=== PATIENT | female | born 1990 | race African-American/Black ===

== ENCOUNTER 2017-09-26 15:49 | Emergency (ER) | payer SELFPAY ==
[~2017-09-26 15:49] MED LIST: AMOX500T PO; DICL50 PO; OXYC-360 PO; PRENCAP6 OR
[2017-09-26 16:09] VITALS: BP 128/62; PULSE 73; RESP 16; TEMP 98.4; O2SAT 100
[2017-09-26 17:46] LABS: AUTOMATED NEUTROPHIL # 6.5 TH/MM3 (1.8-7.7); BASOPHIL % 0.3 % (0.0-2.0); EOSINOPHIL # 0.3 TH/MM3 (0-0.4); EOSINOPHIL % 2.9 % (0.0-4.0); HEMOGLOBIN 12.4 GM/DL (11.6-15.3); LYMPH % 18.4 % (9.0-44.0); LYMPHOCYTE # 1.7 TH/MM3 (1.0-4.8); MEAN CELL VOLUME 84.5 FL (80.0-100.0); MEAN CORPUSCULAR HGB CONC 34.4 % (32.0-36.0); MEAN PLATELET VOLUME 9.9 FL (7.0-11.0); MONO % 8.4 % (0.0-8.0); MONOCYTE # 0.8 TH/MM3 (0-0.9); PLATELET COUNT 227 TH/MM3 (150-450); RED BLOOD COUNT 4.26 MIL/MM3 (4.00-5.30); RED CELL DISTRIBUTION WIDTH 13.7 % (11.6-17.2); WHITE BLOOD COUNT 9.3 TH/MM3 (4.0-11.0)
[2017-09-26 17:59] LABS: BACTERIA, URINE FEW /hpf; BILIRUBIN, URINE NEG (NEG); BLOOD, URINE NEG (NEG); GLUCOSE,URINE NEG (NEG); KETONE, URINE TRACE mg/dL (NEG); MUCUS URINE MANY /lpf (OCC); NITRITE,URINE NEG (NEG); SQUAMOUS EPITHELIAL CELL URINE 3 /hpf (0-5); URINE COLOR YELLOW (YELLW/STRAW); URINE LEUKOCYTE ESTERASE MOD (NEG)
[2017-09-26 18:05] LABS: ALBUMIN 3.2 GM/DL (3.4-5.0); AST (GOT) 11 U/L (15-37); BICARBONATE 24.6 MEQ/L (21.0-32.0); BLOOD UREA NITROGEN 7 MG/DL (7-18); CALCIUM 8.8 MG/DL (8.5-10.1); CHLORIDE 105 MEQ/L (98-107); GLOMERULAR FILTRATION RATE 144 ML/MIN (>89); GLUCOSE,RANDOM 79 MG/DL (74-106); SODIUM (NA) 136 MEQ/L (136-145)
--- NOTE | 2017-09-26 18:14 | PD ---
HPI Chief Complaint: GI Complaint Time Seen by Provider: 16:09 Travel History International Travel<30 days: No Contact w/Intl Traveler<30days: No Traveled to known affect area: No History of Present Illness HPI 27-year-old female presents to emergency department for evaluation of lower abdominal cramping with associated nausea, vomiting, diarrhea that began last evening. Patient denies any fever or chills. Denies any hematochezia or hematemesis. States that she recently took up positive test. Her last menstrual cycle was in June 2017. She denies any vaginal bleeding or discharge. She has no other symptoms to report. PFSH Past Medical History Diminished Hearing: No ?: Past Surgical History Abdominal Surgery: Yes (C-Sect.) Section: Yes Social History Alcohol Use: No Tobacco Use: No Substance Use: No Allergies-Medications (Allergen,Severity, Reaction): Coded Allergies: No Known Allergies (Verified , 12/16/15) Reported Meds & Prescriptions Reported Meds & Active Scripts Active Voltaren (Diclofenac Sodium) 50 Mg Tabec 50 Mg PO TID Amoxil (Amoxicillin) 500 Mg Cap 500 Mg PO TID Reported Percocet (Oxycodone/Acetaminophen) 5 Mg/325 Mg Tab 1-2 Tab PO Q4HPRN FOR PAIN 1 ( Multivitamins) Cap 1 Tab OR DAILY Review of Systems Except as stated in HPI: all other systems reviewed are Neg Physical Exam Narrative Well-nourished female patient, ambulatory and in no acute distress. Head is atraumatic. Even respirations. Regular heart rate. Patient moves all extremities freely. She speaks clearly. Data Data Last Documented VS Vital Signs Date Time Temp Pulse Resp B/P (MAP) Pulse Ox O2 Delivery O2 Flow Rate FiO2 09/26/17 16:09 98.4 73 16 128/62 (84) 100 Orders Orders Complete Blood Count With Diff (09/26/17 16:11) Urinalysis - C+S If Indicated (09/26/17 16:11) Ed Urine Pregnancytest Poc (09/26/17 16:11) Beta Hcg (Quant/Titer) (09/26/17 16:11) Comprehensive Metabolic Panel (09/26/17 16:11) Lipase (09/26/17 16:11) Urine Culture (09/26/17 16:52) Labs Laboratory Tests Test 09/26/17 16:52 White Blood Count 9.3 TH/MM3 Red Blood Count 4.26 MIL/MM3 Hemoglobin 12.4 GM/DL Hematocrit 36.0 % Mean Corpuscular Volume 84.5 FL Mean Corpuscular Hemoglobin 29.0 PG Mean Corpuscular Hemoglobin Concent 34.4 % Red Cell Distribution Width 13.7 % Platelet Count 227 TH/MM3 Mean Platelet Volume 9.9 FL Neutrophils (%) (Auto) 70.0 % Lymphocytes (%) (Auto) 18.4 % Monocytes (%) (Auto) 8.4 % Eosinophils (%) (Auto) 2.9 % Basophils (%) (Auto) 0.3 % Neutrophils # (Auto) 6.5 TH/MM3 Lymphocytes # (Auto) 1.7 TH/MM3 Monocytes # (Auto) 0.8 TH/MM3 Eosinophils # (Auto) 0.3 TH/MM3 Basophils # (Auto) 0.0 TH/MM3 CBC Comment DIFF FINAL Differential Comment Urine Color YELLOW Urine Turbidity HAZY Urine pH 6.0 Urine Specific [place] 1.043 Urine Protein 30 mg/dL Urine Glucose (UA) NEG mg/dL Urine Ketones TRACE mg/dL Urine Occult Blood NEG Urine Nitrite NEG Urine Bilirubin NEG Urine Urobilinogen LESS THAN 2.0 MG/DL Urine Leukocyte Esterase MOD Urine RBC 2 /hpf Urine WBC 9 /hpf Urine Squamous Epithelial Cells 3 /hpf Urine Bacteria FEW /hpf Urine Mucus MANY /lpf Microscopic Urinalysis Comment CULTURE INDICATED Blood Urea Nitrogen 7 MG/DL Creatinine 0.60 MG/DL Random Glucose 79 MG/DL Total Protein 7.7 GM/DL Albumin 3.2 GM/DL Calcium Level 8.8 MG/DL Alkaline Phosphatase 60 U/L Aspartate Amino Transf (AST/SGOT) 11 U/L Alanine Aminotransferase (ALT/SGPT) 14 U/L Total Bilirubin 0.2 MG/DL Sodium Level 136 MEQ/L Potassium Level 3.6 MEQ/L Chloride Level 105 MEQ/L Carbon Dioxide Level 24.6 MEQ/L Anion Gap 6 MEQ/L Estimat Glomerular Filtration Rate 144 ML/MIN Lipase 74 U/L Human Chorionic Gonadotropin, Quant 58578 MIU/ML MDM Medical Decision Making Medical Screen Exam Complete: Yes Emergency Medical Condition: Yes Medical Record Reviewed: Yes Differential Diagnosis Colitis versus diverticulitis versus gastroenteritis versus UTI versus STD Narrative Course 27-year-old female presents to emergency department for evaluation of lower abdominal cramping with nausea, vomiting, diarrhea. She appears nontoxic. Her vital signs are stable. Workup is initiated in triage. Prior to bed placement , patient chooses to leave.AMA: The risks of leaving against medical advice without further evaluation treatment were discussed with the patient. These risks include cardiac dysfunction, cardiac dysrhythmia, possible heart attack, possible stroke or . The patient indicated understanding of these risks and appeared to have the capacity to make this decision. Diagnosis Primary Impression: Nausea, vomiting and diarrhea Additional Impression: Disposition: 07 AGAINST MEDICAL ADVICE Condition: Stable [place] Sep 26, 2017 18:14
[2017-09-26 18:23] LABS: ALKALINE PHOSPHATASE 60 U/L (45-117); ALT (GPT) 14 U/L (10-53); TOTAL BILIRUBIN ADULT 0.2 MG/DL (0.2-1.0); TOTAL PROTEIN 7.7 GM/DL (6.4-8.2)
== END 2017-09-26 18:05 | disposition left against medical advice (07) ==
LOC: NED 15:49
DX: O26.899 Other specified pregnancy related conditions, unspecified trimester (principal); R11.2 Nausea with vomiting, unspecified; R19.7 Diarrhea, unspecified; Z3A.00 Weeks of gestation of pregnancy not specified
CPT/HCPCS: 80053; 81001; 83690; 84702; 84703; 85025; 87086; 99283

== ENCOUNTER → 2017-12-20 | Outpatient (CLI) | payer OTHER ==
[2017-12-20 12:09] LABS: AUTOMATED NEUTROPHIL # 10.3 TH/MM3 (1.8-7.7); BASOPHIL % 0.2 % (0.0-2.0); EOSINOPHIL # 0.2 TH/MM3 (0-0.4); EOSINOPHIL % 1.5 % (0.0-4.0); HEMATOCRIT 31.7 % (35.0-46.0); HEMOGLOBIN 10.6 GM/DL (11.6-15.3); MEAN CORPUSCULAR HEMOGLOBIN 28.6 PG (27.0-34.0); MEAN CORPUSCULAR HGB CONC 33.3 % (32.0-36.0); MEAN PLATELET VOLUME 9.7 FL (7.0-11.0); MONO % 6.3 % (0.0-8.0); MONOCYTE # 0.8 TH/MM3 (0-0.9); PLATELET COUNT 219 TH/MM3 (150-450); RED BLOOD COUNT 3.69 MIL/MM3 (4.00-5.30); RED CELL DISTRIBUTION WIDTH 14.2 % (11.6-17.2); WHITE BLOOD COUNT 13.3 TH/MM3 (4.0-11.0)
[2017-12-20 12:19] LABS: BACTERIA, URINE OCC /hpf; BILIRUBIN, URINE NEG (NEG); BLOOD, URINE NEG (NEG); GLUCOSE,URINE NEG (NEG); HYALINE CAST, URINE 2 /lpf (RARE); KETONE, URINE NEG (NEG); NITRITE,URINE NEG (NEG); PH, URINE 6.5 (5.0-8.5); SQUAMOUS EPITHELIAL CELL URINE 35 /hpf (0-5); URINE COLOR YELLOW (YELLW/STRAW); URINE LEUKOCYTE ESTERASE TRACE (NEG)
== END ==
LOC: ELAB 07:47
PROVIDERS: ATTEND Advanced Practice Midwife
DX: Z20.820 Contact with and (suspected) exposure to varicella (principal); Z13.29 Encounter for screening for other suspected endocrine disorder; Z13.228 Encounter for screening for other metabolic disorders; Z13.89 Encounter for screening for other disorder; Z11.59 Encounter for screening for other viral diseases; Z33.1 Pregnant state, incidental
CPT/HCPCS: 36415; 81001; 83036; 84443; 85025; 86592; 86762; 86787; 86850; 86900; 86901; 87340; 87389; G0475

== ENCOUNTER 2018-04-12 08:29 | Inpatient (IN) ==
[2018-04-12] MEDS ORDERED: ceFAZolin 2 GM Premix Inj 2 GM/50 ML PIGGYBACK IV.SIG PRN (08:59)
[2018-04-12] MEDS ORDERED: Citric Acid/Sodium Citrate Liq 30 ML UDC PO SCH (09:00)
[2018-04-12 09:22] LABS: Baso % (Auto) 0.3 % (0.0-2.0); Eos # (Auto) 0.1 th/mm3 (0.0-0.4); Hematocrit 32.2 % (35.0-46.0); Hemoglobin 10.7 gm/dL (11.6-15.3); Lymph # (Auto) 1.9 th/mm3 (1.0-4.8); Lymph % (Auto) 16.6 % (9.0-44.0); Mean Corpuscular HGB Conc 33.1 % (32.0-36.0); Mean Corpuscular Hemoglobin 27.5 pg (27.0-34.0); Mean Corpuscular Volume 83.2 fL (80.0-100.0); Mean Platelet Volume 8.1 fL (7.0-11.0); Mono # (Auto) 0.7 th/mm3 (0.0-0.9); Mono % (Auto) 6.2 % (0.0-8.0); Neut # (Auto) 8.9 th/mm3 (1.8-7.7); Neut % (Auto) 75.9 % (16.0-70.0); Platelet Count 236 th/mm3 (150-450); Red Blood Count 3.87 mil/mm3 (4.00-5.30); Red Cell Distribution Width 15.7 % (11.6-17.2); White Blood Count 11.7 th/mm3 (4.0-11.0)
[2018-04-12] MEDS ORDERED: Morphine Sulfate PF Inj 5 MG/10 ML Ampul ONE (09:29)
[2018-04-12 09:31] LABS: Bacteria,Urine Rare /hpf; Bilirubin,Urine Negative (Negative); Clarity,Urine Hazy (Clear); Color,Urine Yellow (Yellw/Straw); Glucose,Urine (UA) Negative (Negative); Leukocyte Esterase,Urine Negative (Negative); Mucus,Urine Few /lpf (Occasional); Nitrite,Urine Negative (Negative); Specific Gravity,Urine 1.016 (1.002-1.035); Squamous Epithelial Cell,Urine 15 /hpf (0-5); Urobilinogen,Urine 4 or Greater mg/dL (Less than 2)
[2018-04-12 09:35] LABS: Amphetamine Screen,Urine Neg (Neg); Barbiturate Screen,Urine Neg (Neg); Cannabinoid Screen,Urine Neg (Neg); Cocaine Screen,Urine Neg (Neg); Opiate Screen,Urine Neg (Neg)
[2018-04-12] MEDS ORDERED: ceFAZolin 2 GM/NS 100 ML IV; Q8H IV.SIG SCH ×2 (10:00)
--- NOTE | 2018-04-12 10:06 | P.HPOB ---
History of Present Illness Primary Care Physician: No Primary Care Physician History of Present Illness: HPI: 27 year-old with VALENTE of 04/16/18, therefore at 39 weeks + 3 days EGA, confirmed with LMP on 07/10/17 week ultrasound. Admitted to Labor floor for repeat c/section with tubal ligation. She confirms irregular contractions. Denies any gush of clear fluid. Denies any vaginal bleeding. Patient has felt movements. She is GBS Negative. care: Patient said at her recent visit that she had a low Hb of 8.4. Denies any UTIs. Denies a diagnosis of Gestational diabetes and preeclampsia. OB Hx: G1: Full Term C/Section due to failure to progress (2011) [employer] ATTENDANT Hx: No abnormal Paps. PMH: No History of Asthma, HTN, Blood disorders. FHx: Denies any defects, CF, twins, DM Allergies: NKDA Meds: vitamins. Iron. Social history: No tobacco, alcohol or drug abuse. FH: None ROS: Denies any CP, SOB, AB Pain, Nausea, Vomiting, Problems with Urination or Defecation. - Inpatient Certification I certify that the inpatient services were ordered in accordance with Medicare regulations governing the order. This includes certification that hospital inpatient services are reasonable and necessary and in the case of services not specified as inpatient-only under 42 CFR 419.22(n), that they are appropriately provided as inpatient services in accordance to with the 2-midnight benchmark under 43 CFR 412.3(e) Estimated Total Length of Stay (Days): 3 Plans for Post Hospital Care: Home Review of Systems All other systems reviewed negative except as stated in HPI PMFSH - Travel History Recent Travel in the [place] Within the Last 8 Weeks: No Recent Travel Out of the Country Within the Last 8 Weeks: No Medications and Allergies Active Medications: Active Medications Citric Acid/Sodium Citrate (Sodium Citrate/Citric Acid Liq) 30 ml PO DESSERT [employer] [facility] Stop: 04/16/18 08:59 Lactated Ringer's (Lr 1000 Ml Inj) 1,000 mls @ 150 mls/hr IV.CONT .Q6H40M [facility] Last Admin: 04/12/18 09:40 Dose: 150 mls/hr Cefazolin Sodium 2,000 mg/ (Sodium Chloride) 100 mls @ 200 mls/hr IV.SIG DESSERT [employer] [facility] Stop: 04/15/18 09:59 Sodium Chloride (Ns Flush) 2 ml IV.FLUSH BID PAMELA Sodium Chloride (Ns Flush) 2 ml IV.FLUSH PRN PRN PRN Reason: FLUSH AFTER USING IV ACCESS Allergies Allergy/AdvReac Type Severity Reaction Status Date / Time No Known Allergies Allergy Verified 04/12/18 08:54 Home Medications Medication Instructions Recorded Confirmed Type ferrous sulfate [Iron (ferrous 325 mg PO DAILY 04/12/18 04/12/18 History sulfate)] vit-iron fum-folic ac 1 tab PO DAILY 04/12/18 04/12/18 History [ Vitamin] Exam Vital signs: Vital Signs 04/12/18 08:51 Temperature 99.0 F Pulse Rate 76 Respiratory Rate 18 Blood Pressure 129/65 Intake & Output 04/11/18 04/12/18 04/12/18 18:59 06:59 18:59 Weight 93 kg Other: Weight On Admission 93 kg Narrative: GENERAL: Well-nourished, well-developed patient. SKIN: Warm and dry. HEAD: Normocephalic and atraumatic. CARDIOVASCULAR: Grade 2 systolic murmur appreciated over the left sternal border. RESPIRATORY: Breath sounds equal bilaterally. No accessory muscle use. ABDOMEN/GI: Abdomen soft, non-tender, bowel sounds present, no rebound, no guarding Gravid to 39 weeks size FHT's: Category: 1 Baseline: 150 bmp Reactive: yes Variability: moderate Decels: none EXTREMITIES: No cyanosis or edema. NEUROLOGICAL: Awake and alert. Normal speech. Results - Labs CBC & Chem 7: 04/12/18 08:50 Labs: Laboratory Results - last 24 hr 04/12/18 04/12/18 04/12/18 08:30 08:30 08:50 WBC 11.7 H RBC 3.87 L Hgb 10.7 L Hct 32.2 L MCV 83.2 MCH 27.5 MCHC 33.1 RDW 15.7 Plt Count 236 MPV 8.1 Neut % (Auto) 75.9 H Lymph % (Auto) 16.6 Jackson % (Auto) 6.2 Eos % (Auto) 1.0 Baso % (Auto) 0.3 Neut # (Auto) 8.9 H Lymph # (Auto) 1.9 Jackson # (Auto) 0.7 Eos # (Auto) 0.1 Baso # (Auto) 0.0 WBC Differential . Differential Comment Auto diff final Urine Color Yellow Urine Clarity Hazy H Urine pH 6.0 Ur Specific [place] 1.016 Urine Protein Negative Urine Glucose (UA) Negative Urine Ketones Negative Urine Occult Blood Small H Urine Nitrate Negative Urine Bilirubin Negative Urine Urobilinogen 4 or greater Ur Leukocyte Esterase Negative Urine RBC 31 H Urine WBC 3 Ur Squamous Epith Cells 15 Urine Bacteria Rare H Urine Mucus Few H Micro UA Comment Culture not ind Ur Microscopic Review Microscopic reviewed Urine Culture Comments Culture not ind Urine Opiates Screen Neg Ur Barbiturates Screen Neg Ur Amphetamines Screen Neg U Benzodiazepines Scrn Neg Urine Cocaine Screen Neg U Cannabinoids Screen Neg Blood Type 04/12/18 08:50 WBC RBC Hgb Hct MCV MCH MCHC RDW Plt Count MPV Neut % (Auto) Lymph % (Auto) Jackson % (Auto) Eos % (Auto) Baso % (Auto) Neut # (Auto) Lymph # (Auto) Jackson # (Auto) Eos # (Auto) Baso # (Auto) WBC Differential Differential Comment Urine Color Urine Clarity Urine pH Ur Specific [place] Urine Protein Urine Glucose (UA) Urine Ketones Urine Occult Blood Urine Nitrate Urine Bilirubin Urine Urobilinogen Ur Leukocyte Esterase Urine RBC Urine WBC Ur Squamous Epith Cells Urine Bacteria Urine Mucus Micro UA Comment Ur Microscopic Review Urine Culture Comments Urine Opiates Screen Ur Barbiturates Screen Ur Amphetamines Screen U Benzodiazepines Scrn Urine Cocaine Screen U Cannabinoids Screen Blood Type B Positive Caprini VTE Risk Assessment Caprini VTE Risk Assessment: No/Low Risk (score <= 1) Caprini Risk Assessment Model: Point Value = 1 Point Value = 2 Point Value = 3 Point Value = 5 Age 41-60 Minor surgery BMI > 25 kg/m2 Swollen legs Varicose veins or History of unexplained or recurrent spontaneous Oral contraceptives or hormone replacement Sepsis (< 1 month) Serious lung disease, including pneumonia (< 1 month) Abnormal pulmonary function Acute myocardial infarction Congestive heart failure (< 1 month) History of inflammatory bowel disease Medical patient at bed rest Age 61-74 Arthroscopic surgery Major open surgery (> 45 min) Laparoscopic surgery (> 45 min) Malignancy Confined to bed (> 72 hours) Immobilizing plaster cast Central venous access Age >= 75 History of VTE Family history of VTE Factor V Leiden Prothrombin [id number] Lupus anticoagulant Anticardiolipin antibodies Elevated serum homocysteine Heparin-induced thrombocytopenia Other congenital or acquired thrombophilia Stroke (< 1 month) Elective arthroplasty Hip, pelvis, or leg fracture Acute spinal cord injury (< 1 month) Prophylaxis Regimen: Total Risk Factor Score Risk Level Prophylaxis Regimen 0-1 Low Early ambulation 2 Moderate Order ONE of the following: *Sequential Compression Device (SCD) *Heparin 5000 units SQ BID 3-4 Higher Order ONE of the following medications: *Heparin 5000 units SQ TID *Enoxaparin/Lovenox 40 mg SQ daily (WT < 150 kg, CrCl > 30 mL/min) *Enoxaparin/Lovenox 30 mg SQ daily (WT < 150 kg, CrCl > 10-29 mL/min) *Enoxaparin/Lovenox 30 mg SQ BID (WT < 150 kg, CrCl > 30 mL/min) AND/OR *Sequential Compression Device (SCD) 5 or more Highest Order ONE of the following medications: *Heparin 5000 units SQ TID (Preferred with Epidurals) *Enoxaparin/Lovenox 40 mg SQ daily (WT < 150 kg, CrCl > 30 mL/min) *Enoxaparin/Lovenox 30 mg SQ daily (WT < 150 kg, CrCl > 10-29 mL/min) *Enoxaparin/Lovenox 30 mg SQ BID (WT < 150 kg, CrCl > 30 mL/min) AND *Sequential Compression Device (SCD) Assessment and Plan - Diagnosis (1) 39 weeks gestation of Code(s): Z3A.39 - 39 weeks gestation of Status: Acute (2) deliv due to previous difficult deliv, deliv, curr hospitaliz Code(s): O99.89 - Other specified diseases and conditions complicating , childbirth and the puerperium; Z87.59 - Personal history of other complications of , childbirth and the puerperium Status: Acute - Plan 28 year old at 39+3 presents to Labor floor for repeat c/section with tubal ligation. -Routine care -EFM/Mccaus[place] -Tubal papers signed. -NPO -Cefazolin 2 grams ordered. -CBC, T&S, UA : Hb: 10.7 -Discussed with Dr. Kang
[2018-04-12] MEDS ORDERED: Phenylephrine/NS 1000 MCG/10ML Syringe IV.PUSH ONE (10:10)
[2018-04-12] MEDS ORDERED: Ketorolac Inj 30 MG/ML (IVP) Vial IV.PUSH ONE (11:10)
[2018-04-12] MEDS ORDERED: Acetaminophen 325 MG Tablet PO PRN (11:34)
[2018-04-12] MEDS ORDERED: Senna/Docusate Sodium 8.6/50 MG Tablet PO PRN (11:34)
[2018-04-12] MEDS ORDERED: Simethicone 80 MG Chew Tablet PO PRN (11:34)
--- NOTE | 2018-04-12 11:45 | P.OBDELI ---
Procedure Note - Pre Op Diagnosis (1) Previous delivery affecting , antepartum (2) 39 weeks gestation of - Post Op Diagnosis (1) 39 weeks gestation of (2) Previous delivery affecting , antepartum Performed by: Toño Kang MD Procedure: Repeat Low Transverse Section, Other (bilateral tubal ligation) Indication for Delivery: Desired elective repeat Informed Consent Obtained: For anesthesia, For procedure Confirmed Correct: Patient Anesthesia: Spinal Medication Prior to Procedure: As documented in eMAR Monitoring During Procedure: monitor Urinary Catheter: Inserted using sterile technique Sterile Preparation: Duraprep Position: Supine with wedge to right side - Operative Features Skin Incision: Transverse Uterine Incision: Low transverse w/knife / blunt ext Membranes Ruptured: Artificially Presentation: Occiput anterior Status of Infant: Viable Placenta Delivered: Intact Medications: Antibiotics, Oxytocin Estimated blood loss (mL): 500 Procedure Tolerated: Well Maternal Condition: Stable Baby Condition: Stable Procedure in Detail: Patient was rendered a spinal anesthetic and prepped and draped appropriately. Previous Pfannenstiel incision was excised out of cast off. Incision carried the fascia sharply and the fascia dissected off the rectus muscle laterally. The peritoneal cavity entered sharply without difficulty. Incision extended superior and inferiorly. The incision and stretched open and the bladder blade placed large incision. Bladder was behind the bladder blade. A transverse incision made in the lower uterine segment extended bluntly bilaterally. The male infant was delivered at 10:42 AM Apgars 8/9 and weight was 3765 gm, delayed cord clamping was done, cord blood obtained, placenta manually extracted without difficulty. The uterus cleaned of all remnants of membranes. The uterus is exteriorized elevated out the hysterotomy closed in a running layer of 0 chromic followed by imbricating suture same and hemostasis was achieved. The tubal was then performed the left fallopian tube was grasped with a [place] clamp and elevated. Hemostat passed through an avascular section of the mesosalpinx and 2 plain catgut sutures brought through that window the tube was tied fore and aft the intervening segment excised out sent to pathology. That procedure is known as a [place] tubal ligation. The right tube was elevated and followed to its fimbriated end. An avascular section was identified as well the tube was elevated and a Olive tubal was performed on the side where 2 catgut sutures were used to tie in a lasso fashion around the fallopian tube with a large knuckle of tube above the knot, that knuckle of tube above the knot was excised and sent to pathology. Hemostasis achieved on both sides. And the tubal was completed at that point. The uterus is elevated again and the blood suctioned the cul-de-sac gutters. The uterus replaced the peritoneal cavity. The parietal peritoneum was closed in running layer of 2-0 Vicryl. Muscle reapproximated with stick ties of chromic and Vicryl. The fascia then closed in running layer of 0 Vicryl. Subcutaneous tissues reapproximated the space closed with a 0 plain catgut suture. Skin then closed with 3-0 Monocryl subcuticular stitch and pressure dressing applied. Estimated blood loss 500 cc were no complications sponge and needle correct 2 patient taken recovery - : Male Male A Infant Delivery Date: 04/12/18 Delivery Time: 10:42 Weight: 3.765 kg Delivery of : Uneventful score (1 min): 8 score (5 min): 9
[2018-04-12] MEDS ORDERED: Oxytocin 30 Units/500ml Premix 30 UNITS/500 ML BAG ONE (11:57)
[2018-04-12] MEDS ORDERED: Oxytocin 30 Units/500ml Premix 30 UNITS/500 ML BAG IV.SIG ONE (12:00)
[2018-04-12] MEDS ORDERED: Oxytocin 30 Units/500ml Premix 30 UNITS/500 ML BAG IV.SIG PRN (16:34)
[2018-04-12] MEDS: ceFAZolin 2 GM Premix Inj 2 GM/100 ML BAG IV.SIG SCH (18:07)
[2018-04-12] MEDS ORDERED: Zolpidem Tartrate 5 MG Tablet PO PRN (21:00)
[2018-04-13] MEDS: ceFAZolin 2 GM Premix Inj 2 GM/100 ML BAG IV.SIG SCH (04:30)
[2018-04-13 05:52] LABS: Baso % (Auto) 0.1 % (0.0-2.0); Eos # (Auto) 0.1 th/mm3 (0.0-0.4); Eos % (Auto) 0.5 % (0.0-4.0); Hematocrit 28.1 % (35.0-46.0); Hemoglobin 9.1 gm/dL (11.6-15.3); Lymph # (Auto) 2.2 th/mm3 (1.0-4.8); Lymph % (Auto) 11.6 % (9.0-44.0); Mean Corpuscular HGB Conc 32.4 % (32.0-36.0); Mean Corpuscular Hemoglobin 27.3 pg (27.0-34.0); Mean Corpuscular Volume 84.2 fL (80.0-100.0); Mean Platelet Volume 8.1 fL (7.0-11.0); Mono # (Auto) 1.1 th/mm3 (0.0-0.9); Mono % (Auto) 5.6 % (0.0-8.0); Neut # (Auto) 15.8 th/mm3 (1.8-7.7); Neut % (Auto) 82.2 % (16.0-70.0); Platelet Count 244 th/mm3 (150-450); Red Blood Count 3.33 mil/mm3 (4.00-5.30); White Blood Count 19.2 th/mm3 (4.0-11.0)
--- NOTE | 2018-04-13 09:07 | P.PNOB ---
Subjective Interval history: Patient is a 27 year-old delivered at 39 weeks and 3 days. Patient is post op day 1 after repeat c section with tubal ligation. Patient's pain is well- controlled. She complains of itching of her arms and had received some Benadryl overnight with minimal relief. Patient reports eating and drinking without any nausea or vomiting. Patient reports minimal bleeding. Patient has not passed gas and had no bowel movements. Patient is walking without lower extremity pain or shortness of breath. Patient is breast-feeding appropriately. Objective Vital Signs/I&O: Vital Signs 04/12/18 11:40 04/12/18 11:55 04/12/18 12:09 Temperature 97.5 F L Pulse Rate 70 60 57 L Respiratory Rate 18 18 16 Blood Pressure 118/54 L 99/49 L 112/58 L 04/12/18 12:25 04/12/18 12:40 04/12/18 13:04 Temperature Pulse Rate 58 L 79 63 Respiratory Rate 18 18 20 Blood Pressure 125/55 L 121/56 L 116/69 04/12/18 20:00 04/13/18 00:00 04/13/18 04:00 Temperature 97.0 F L 97.6 F 98.1 F Pulse Rate 95 H 65 70 Respiratory Rate 20 18 18 Blood Pressure 119/58 L 107/56 L 110/54 L Intake & Output 04/12/18 04/13/18 04/13/18 18:59 06:59 18:59 Intake Total 100 / 100 Balance 100 / 100 Weight 93 kg Intake: IV 100 / 100 Ancef 2 GM Premix Inj 2 gm In 100 / 100 100 ml @ 200 mls/hr IV.SIG Q8H [facility] Rx#:[id number] Other: Weight On Admission 93 kg Result Diagrams: 04/13/18 05:20 Objective Remarks: GENERAL: Well-nourished, well-developed patient. CARDIOVASCULAR: Regular rate and rhythm without murmurs, gallops, or rubs. RESPIRATORY: Breath sounds equal bilaterally. No accessory muscle use. ABDOMEN/GI: Abdomen soft, non-tender, bowel sounds present. Incision: Clean, dry and intact. Fundus: Firm, non-tender at umbilicus. GENITOURINARY: Light to moderate bleeding. EXTREMITIES: No cyanosis or edema, non-tender, without signs of DVT. Medications and IVs: Active Medications Acetaminophen (Tylenol) 650 mg PO Q6H PRN PRN Reason: PAIN SCALE 1 TO 2 Diphenhydramine HCl (Benadryl Inj) 50 mg IV.PUSH Q6H PRN PRN Reason: ITCHING Last Admin: 04/13/18 02:31 Dose: 50 mg Diphtheria/Pertussis/Tetanus Vacc (Boostrix Vaccine Inj) 0.5 ml IM .ONCE ONE Stop: 04/13/18 16:01 Cefazolin Sodium 2,000 mg/ (Sodium Chloride) 100 mls @ 200 mls/hr IV.SIG [employer] [facility] Stop: 04/15/18 09:59 Lactated Ringer's (Lr 1000 Ml Inj) 1,000 mls @ 100 mls/hr IV.CONT .Q10H [facility] Stop: 04/13/18 12:33 Oxytocin (Pitocin 30 Units/Ns 500 Ml Premix) 30 units in 500 mls @ 100 mls/hr IV.SIG UNSCH PRN PRN Reason: Heavy bleeding Ibuprofen (Motrin) 800 mg PO Q8H PRN PRN Reason: cramping Last Admin: 04/13/18 02:39 Dose: 800 mg Ketorolac Tromethamine (Toradol Inj) 30 mg IM Q6H PRN PRN Reason: SEE LABEL COMMENTS Stop: 04/17/18 11:33 Measles/Mumps/Rubella Vaccine Live (M-M-R Ii Vaccine Inj) 0.5 ml SQ .ONCE ONE Stop: 04/13/18 16:01 Ondansetron HCl (Zofran Inj) 4 mg IV.PUSH Q6H PRN PRN Reason: NAUSEA OR VOMITING Last Admin: 04/12/18 17:35 Dose: 4 mg Oxycodone/Acetaminophen (Percocet 5/325 Mg) 1 tab PO Q4H PRN PRN Reason: PAIN SCALE 3 TO 5 Oxycodone/Acetaminophen (Percocet 5/325 Mg) 2 tab PO Q4H PRN PRN Reason: PAIN SCALE 6 TO 10 Senna/Docusate Sodium (Dasha-Colace) 2 tab PO Q12H PRN PRN Reason: CONSTIPATION Simethicone (Mylicon Chew) 80 mg PO QID PRN PRN Reason: FLATULENCE Sodium Chloride (Ns Flush) 2 ml IV.FLUSH BID [facility] Last Admin: 04/12/18 21:38 Dose: Not Given Sodium Chloride (Ns Flush) 2 ml IV.FLUSH PRN PRN PRN Reason: FLUSH AFTER USING IV ACCESS Zolpidem Tartrate (Ambien) 5 mg PO HS PRN PRN Reason: INSOMNIA Assessment and Plan - Diagnosis (1) 39 weeks gestation of Code(s): Z3A.39 - 39 weeks gestation of Status: Resolved (2) deliv due to previous difficult deliv, deliv, curr hospitaliz Code(s): O99.89 - Other specified diseases and conditions complicating , childbirth and the puerperium; Z87.59 - Personal history of other complications of , childbirth and the puerperium Status: Resolved - Plan Patient is a 27 year-old delivered at 39 weeks and 3 days. Patient is day 1 after repeat c/section. Continue routine care. Benadryl and Hydroxyzine added for itching Motrin and Percocet when necessary for pain. Encourage OOB Pelvic rest for 6 weeks will need follow-up appointment at that time. Contraception: tubal ligation appropriately. Discussed with Dr. Kang .
[2018-04-13] MEDS ORDERED: Diphtheria/Tetanus/Pertussis Vaccine Inj 0.5 ML Syringe IM ONE (16:00)
[2018-04-13] MEDS ORDERED: Measles/Mumps/Rubella Vaccine Inj 0.5 ML Vial SQ ONE (16:00)
--- NOTE | 2018-04-14 08:23 | P.PNOB ---
Subjective Post op day: 2 Interval history: Patient is a 27-year-old delivered at 39 weeks and 3 days. Patient is day 2 after repeat c/s. Patient's pain is well-controlled. Patient reports minimal bleeding. Patient reports eating and drinking without any nausea or vomiting. Patient has passed gas but has not had a bowel movement. Patient denies chest pain and shortness of breath. Patient has been ambulating; she denies lower extremity pain. Patient reports desire for contraception, which she will discuss with her PCP at her first follow-up visit. Patient has decided to formula-feed. Objective Vital Signs/I&O: Vital Signs 04/13/18 20:00 04/13/18 21:49 Temperature 98.5 F Pulse Rate 82 Respiratory Rate 18 20 Blood Pressure 105/53 L Result Diagrams: 04/13/18 05:20 Objective Remarks: GENERAL: Well-nourished, well-developed patient. CARDIOVASCULAR: Regular rate and rhythm without murmurs, gallops, or rubs. RESPIRATORY: Breath sounds equal bilaterally. No accessory muscle use. ABDOMEN/GI: Abdomen soft, non-tender, bowel sounds present. Incision: Clean, dry and intact. Fundus: Firm, non-tender at umbilicus. GENITOURINARY: Light to moderate bleeding. EXTREMITIES: No cyanosis or edema, non-tender, without signs of DVT. Medications and IVs: Active Medications Acetaminophen (Tylenol) 650 mg PO Q6H PRN PRN Reason: PAIN SCALE 1 TO 2 Last Admin: 04/13/18 18:24 Dose: 650 mg Diphenhydramine HCl (Benadryl Inj) 50 mg IV.PUSH Q6H PRN PRN Reason: ITCHING Last Admin: 04/13/18 02:31 Dose: 50 mg Hydroxyzine HCl (Atarax) 100 mg PO Q6H PRN PRN Reason: ITCHING AND/OR RASH Last Admin: 04/13/18 16:30 Dose: 100 mg Cefazolin Sodium 2,000 mg/ (Sodium Chloride) 100 mls @ 200 mls/hr IV.SIG [employer] PAMELA Stop: 04/15/18 09:59 Oxytocin (Pitocin 30 Units/Ns 500 Ml Premix) 30 units in 500 mls @ 100 mls/hr IV.SIG UNSCH PRN PRN Reason: Heavy bleeding Ibuprofen (Motrin) 800 mg PO Q8H PRN PRN Reason: cramping Last Admin: 04/14/18 01:48 Dose: 800 mg Ketorolac Tromethamine (Toradol Inj) 30 mg IM Q6H PRN PRN Reason: SEE LABEL COMMENTS Stop: 04/17/18 11:33 Ondansetron HCl (Zofran Inj) 4 mg IV.PUSH Q6H PRN PRN Reason: NAUSEA OR VOMITING Last Admin: 04/12/18 17:35 Dose: 4 mg Oxycodone/Acetaminophen (Percocet 5/325 Mg) 1 tab PO Q4H PRN PRN Reason: PAIN SCALE 3 TO 5 Last Admin: 04/14/18 01:49 Dose: 1 tab Oxycodone/Acetaminophen (Percocet 5/325 Mg) 2 tab PO Q4H PRN PRN Reason: PAIN SCALE 6 TO 10 Last Admin: 04/13/18 20:20 Dose: 2 tab Senna/Docusate Sodium (Dasha-Colace) 2 tab PO Q12H PRN PRN Reason: CONSTIPATION Simethicone (Mylicon Chew) 80 mg PO QID PRN PRN Reason: FLATULENCE Sodium Chloride (Ns Flush) 2 ml IV.FLUSH BID PAMELA Last Admin: 04/13/18 21:49 Dose: Not Given Sodium Chloride (Ns Flush) 2 ml IV.FLUSH PRN PRN PRN Reason: FLUSH AFTER USING IV ACCESS Zolpidem Tartrate (Ambien) 5 mg PO HS PRN PRN Reason: INSOMNIA Assessment and Plan - Diagnosis (1) 39 weeks gestation of Code(s): Z3A.39 - 39 weeks gestation of Status: Resolved (2) deliv due to previous difficult deliv, deliv, curr hospitaliz Code(s): O99.89 - Other specified diseases and conditions complicating , childbirth and the puerperium; Z87.59 - Personal history of other complications of , childbirth and the puerperium Status: Acute - Plan Patient is a 27-year-old delivered at 39 weeks and 3 days. Patient is day 2 after repeat c/s. Continue routine care. Motrin and Percocet when necessary for pain. Encourage OOB. 1 week incision check with OB provider. Pelvic rest for 6 weeks, will need follow-up appointment at that time. Contraception: To discuss with OB provider. Anticipate discharge tomorrow. amy OB hospitalist - Attending Attestation The exam, history, and the medical decision-making described in the above note were completed with the assistance of the resident physician. I reviewed and agree with the findings presented. I attest that I had a [id number] encounter with the patient on the same day, and personally performed and documented my assessment and findings in the medical record.
--- NOTE | 2018-04-14 09:17 | P.PNADD ---
Addendum to Inpatient Note Reason for Addendum: Additional Documentation Additional information: Patient to be discharged on Percocet 5mg q4hr PO x3 days for acute post-op pain. Eforcse checked; patient not found. Discussed with OB hospitalist
== END 2018-04-14 13:50 | disposition home or self-care (01) ==
LOC: H2E 08:29 → H1EA 12:51
PROVIDERS: ADMIT Obstetrics & Gynecology Maternal & Fetal Medicine; ATTEND Obstetrics & Gynecology Maternal & Fetal Medicine